=== PATIENT | male | born 1945 | race Caucasian/White ===

== ENCOUNTER 2018-05-04 14:48 | Inpatient (IN) | payer OTHER ==
[~2018-05-04] VITALS: Ht 167.6 cm; Wt 79.8 kg
--- NOTE | 2018-05-04 14:55 | NUR ---
Placed in room 1. Placed on diagnostic cardiac sonographer, blood pressure machine and pulse oximeter. To gown for exam. Side rails up. Report given to Mona JACOBS.
[2018-05-04 14:57] VITALS: BP_SYST 141
--- NOTE | 2018-05-04 15:05 | NUR ---
PT STATES THAT HE DOES NOT KNOW WHY HE IS HERE, PT STATES HE FEELS GOOD. ACCORDING TO , AFTER HAVING DIALYSIS TODAY, PT WENT HOME AND WAS ACTING ODDLY, CONFUSED. PT IS ALERT AND ORIENTED AT THIS TIME.
[2018-05-04 15:20] LABS: BASOPHILS % (AUTO) 0.5 % (0.0-2.0); EOSINOPHILS # (AUTO) 0.2 K/uL (0.0-0.4); HEMATOCRIT 31.3 % (36-54); HEMOGLOBIN 10.3 g/dL (14.0-18.0); LYMPHOCYTES # (AUTO) 0.7 K/uL (1.0-5.5); LYMPHOCYTES % (AUTO) 15.9 % (20.5-51.5); MEAN CORPUSCULAR HEMOGLOBIN 34 pg (27-31); MEAN CORPUSCULAR HGB CONC 33 % (32-36); MEAN CORPUSCULAR VOLUME 104 fL (79.0-98.0); MONOCYTES # (AUTO) 0.4 K/uL (0.0-1.0); MONOCYTES % (AUTO) 8.1 % (1.7-9.3); NEUTROPHILS # (AUTO) 3.3 K/uL (1.8-7.7); NEUTROPHILS % (AUTO) 70.5 % (40.0-70.0); PLATELET COUNT (AUTO) 117 K/uL (130-430); RED BLOOD CELL COUNT(AUTO) 3.02 MIL/uL (4.2-6.2); RED CELL DISTRIBUTION WIDTH 13.6 % (9.0-15.0); WHITE BLOOD COUNT (AUTO) 4.6 K/uL (4.8-10.8)
--- NOTE | 2018-05-04 15:20 | NUR ---
ER at bedside examining patient.
[2018-05-04 15:32] LABS: ANION GAP 8 (5-15); CALCIUM 9.1 mg/dL (8.4-11.0); CHLORIDE 97 mmol/L (98-107); GLUCOSE 129 mg/dL (70-99); POTASSIUM 3.7 mmol/L (3.5-5.1); SODIUM SERUM 134 mmol/L (136-145); UREA NITROGEN, BLOOD 34 mg/dL (8-21)
[2018-05-04 15:36] LABS: PROTHROMBIN TIME 9.7 SECS (9.5-12.5)
[2018-05-04 15:37] LABS: ALANINE AMINOTRANSFERASE 22 U/L (12-78); ALBUMIN 2.4 g/dL (3.4-4.8); ASPARTATE AMINOTRANSFERASE 23 U/L (10-37); TOTAL BILIRUBIN 0.7 mg/dL (0.0-1.0)
--- NOTE | 2018-05-04 15:45 | NUR ---
REPORT GIVEN TO ELOISA/SAM, WILL ASSUME CARE
--- NOTE | 2018-05-04 16:45 | NUR ---
Received the orders from Dr. Wolf via Telephone/ Readback.
[2018-05-04] MEDS ORDERED: GABA-531 PO (17:19)
[2018-05-04] MEDS ORDERED: TRIA15CR4 TP (17:19)
[2018-05-04] MEDS ORDERED: OMEP20TA20 PO (17:19)
[2018-05-04] MEDS ORDERED: PHO667 PO (17:19)
[2018-05-04] MEDS ORDERED: TACR1CAP PO (17:19)
[2018-05-04] MEDS ORDERED: NEU300 PO (17:19)
[2018-05-04] MEDS ORDERED: LAMI100T PO (17:19)
[2018-05-04] MEDS ORDERED: FURO-149 PO (17:19)
[2018-05-04] MEDS ORDERED: FLUO40CR9 TP (17:19)
[2018-05-04] MEDS ORDERED: TACR0.5C PO (17:19)
[2018-05-04] MEDS ORDERED: EMLA TP (17:19)
[2018-05-04] MEDS ORDERED: ISOS30TA6 PO (17:19)
[2018-05-04] MEDS ORDERED: FLUT16SP16 NS (17:19)
[2018-05-04] MEDS ORDERED: TAMS0.4C96 PO (17:19)
[2018-05-04] MEDS ORDERED: HYDR-3917 PO (17:19)
[2018-05-04] MEDS ORDERED: ALBMDI INH (17:19)
[2018-05-04] MEDS ORDERED: ALLO100T PO (17:19)
[2018-05-04] MEDS ORDERED: NEPH PO (17:19)
--- NOTE | 2018-05-04 17:20 | NUR ---
Medication reconciliation completed with information provided by Patient. Any prior medication reconciliation on file was reviewed and corrected.
[2018-05-04] MEDS ORDERED: MORP15TA PO (17:33)
[2018-05-04] MEDS ORDERED: RIFA300C2 PO (17:40)
[2018-05-04] MEDS ORDERED: PRO40 PO (17:40)
[2018-05-04] MEDS ORDERED: ACET-73 PO (17:40)
[2018-05-04] MEDS ORDERED: DOCU-144 PO (17:40)
--- NOTE | 2018-05-04 17:40 | NUR ---
Patient will be admitted to care of Dr. Wolf. Admitted to Tele unit. Will go to room 119A. Belongings list completed. Summary report printed. Report will be given at bedside.
--- NOTE | 2018-05-04 18:23 | NUR ---
Admission Note Received patient from ER with diagnosis of Metabolic Encephalopathy. Initial Plan of Care discussed-patient verbalized his understanding. Family at bedside. Oriented to room, call light, pain management and safety.
--- NOTE | 2018-05-04 18:23 | NUR ---
Transfer to Tele via ACLS protocol. Licensed nurse present. IV present no signs or symptoms of infiltration. Report given to ARLENE Boston.
[2018-05-04] MEDS ORDERED: MAGNESIUM SULFATE 50 ML IV PRN (18:30)
[2018-05-04] MEDS ORDERED: ONDANSETRON HCL 4 MG/2 ML VIAL IVP PRN (18:30)
[2018-05-04] MEDS ORDERED: ACETAMINOPHEN 325 MG TABLET PO PRN (18:30)
[2018-05-04] MEDS ORDERED: TRIAMCINOLONE ACETONIDE 0.025% 15 GM CREAM.GM. TP PRN (18:30)
[2018-05-04] MEDS ORDERED: POTASSIUM CHLORIDE 20 MEQ TAB.PRT.SR PO PRN (18:30)
[2018-05-04] MEDS ORDERED: MUPIROCIN 2% TOPICAL OINTMENT 22 GM NS PRN (18:30)
[2018-05-04] MEDS ORDERED: DOCUSATE SODIUM 100 MG CAPSULE PO PRN (18:30)
[2018-05-04] MEDS ORDERED: ALBUTEROL MDI INHALATION 8 GM INH INH PRN (18:30)
[2018-05-04] MEDS ORDERED: MORPHINE 2 MG/ML INJ. SYRINGE IVP PRN ×2 (18:30)
[2018-05-04] MEDS ORDERED: LORazepam 2 MG/ML VIAL IVP PRN (18:30)
[2018-05-04] MEDS ORDERED: ZOLPIDEM TARTRATE 5 MG TABLET PO PRN (18:30)
[2018-05-04 18:48] VITALS: BP_SYST 167
[2018-05-04] MEDS ORDERED: ALBUTEROL SULFATE 0.083% 2.5 MG/3 ML VIAL.NEB INH PRN (19:30)
--- NOTE | 2018-05-04 19:47 | NUR ---
Patient in bed resting with family at bedside. No acute distress or SOB noted. Patient noted with dialysis shunt on left forearm with clean dressing. AAOx3 and able to make needs known. Right forearm IV noted SL with no redness noted. All needs met at this time.
--- NOTE | 2018-05-04 20:27 | NUR ---
CONSULTATION PAGED/CALLED Reason for Consultation: dialysis Person Who was Notified: grace Consulting Physician: DR HAMPTON . DOCTOR LUÍS IS ASSISTANT PROJECT MANAGER Strip Cleaner Specialty: Ordering Physician: [place]
[2018-05-04] MEDS ORDERED: LABETALOL 100 MG/ 20ML VIAL IVP PRN (20:45)
--- NOTE | 2018-05-04 21:10 | NUR ---
TRANSFER OF CARE: REPORT TAKEN FROM ARLENE VARGAS TO ASSUME CARE AT BEDSIDE. PATIENT IN BEDSIDE AWAKE ORIENTED X3. AND DAUGHTER AT BEDSIDE. PATIENT HAVING HICCUP. TO GIVE MEDICINE. ASKED TO GIVE ALL MEDICINES NOW,WHERE LISTS OF MEDICINES SHE GAVE IN ER .DISCUSSED PLAN OF CARES TONIGHT AND IN AM.ABLE TO ANSWER ALL QUESTION AND GAVE WHAT SHE NEEDS. GAVE ICE CHIPS FOR HICCUPS WITH RELIEF.
[2018-05-04] MEDS: TACROLIMUS ANHYDROUS 1 MG CAPSULE (PROGRAF) PO SCH (22:14)
--- NOTE | 2018-05-04 22:15 | NUR ---
[employer]: PROGRAF 1MG PO GIVEN ORDERED. PT. IS ASKING FOR HIS 1MG +0.5MG PO PROGRAF.EXPLAINED 1MG AT HS AND 0.5MG AT O900AS ORDERED WITH UNDERSTANDING.
[2018-05-04 22:16] VITALS: BP_SYST 167
[2018-05-04 22:30] VITALS: BP_SYST 160
[2018-05-04] MEDS: FUROSEMIDE 40 MG/4 ML VIAL IVP SCH (22:49)
[2018-05-04] MEDS: DOCUSATE SODIUM 100 MG CAPSULE PO SCH (22:50)
--- NOTE | 2018-05-04 22:50 | NUR ---
LASIX 40MG IV WITH OTHER MEDS AFTER EDUCATING USE OF IT ,BP 160/67 .TOOK ALL MEDS WITHOUT DIFFICULTY.
[2018-05-04] MEDS: METOPROLOL TARTRATE 25 MG TABLET PO SCH (22:51)
[2018-05-04] MEDS: HEPARIN SODIUM,PORCINE 5000 UNITS/ML VIAL SUBCUT SCH (22:53)
--- NOTE | 2018-05-04 23:45 | NUR ---
BED ALARMED. GOT UP TO GO TO BATHROOM . ASSISTED .WALK SLOWLY TO BATHROOM. DENIES DIZZINESS. ASKED IF DID BOWEL MOVEMENT ANSWERED YES, DID VOIDED WELL REMINDED TO USE URINAL NEXT VOID TO SAVE SPECIMEN FOR URINALYSIS.
[2018-05-05 00:45] VITALS: BP_SYST 110
--- NOTE | 2018-05-05 01:30 | NUR ---
ROUNDS: PATIENT RESTING WITH EYES CLOSE.
--- NOTE | 2018-05-05 03:30 | NUR ---
ROUNDS: PATIENT IN BED ,AWAKE.DENIES PAIN NOR SOB. MORE BLANKETS GIVEN.ENCOURAGE TO SLEEP.
[2018-05-05 06:25] LABS: ANION GAP 8 (5-15); CHLORIDE 94 mmol/L (98-107); CREATININE 5.76 mg/dL (0.55-1.30); GLUCOSE 98 mg/dL (70-99); POTASSIUM 4.6 mmol/L (3.5-5.1); SODIUM SERUM 132 mmol/L (136-145); UREA NITROGEN, BLOOD 44 mg/dL (8-21)
[2018-05-05 06:49] LABS: BASOPHILS % (AUTO) 0.4 % (0.0-2.0); EOSINOPHILS # (AUTO) 0.2 K/uL (0.0-0.4); EOSINOPHILS % (AUTO) 5.4 % (0.0-4.0); HEMATOCRIT 31.4 % (36-54); HEMOGLOBIN 10.5 g/dL (14.0-18.0); LYMPHOCYTES # (AUTO) 0.9 K/uL (1.0-5.5); LYMPHOCYTES % (AUTO) 19.2 % (20.5-51.5); MEAN CORPUSCULAR HEMOGLOBIN 34 pg (27-31); MEAN CORPUSCULAR HGB CONC 34 % (32-36); MEAN CORPUSCULAR VOLUME 102 fL (79.0-98.0); MONOCYTES # (AUTO) 0.4 K/uL (0.0-1.0); MONOCYTES % (AUTO) 9.8 % (1.7-9.3); NEUTROPHILS % (AUTO) 65.2 % (40.0-70.0); PLATELET COUNT (AUTO) 99 K/uL (130-430); RED BLOOD CELL COUNT(AUTO) 3.08 MIL/uL (4.2-6.2); RED CELL DISTRIBUTION WIDTH 13.1 % (9.0-15.0); WHITE BLOOD COUNT (AUTO) 4.5 K/uL (4.8-10.8)
--- NOTE | 2018-05-05 06:50 | NUR ---
CLOSING: DID HAD EPISODES OF CONFUSION DURING THE SHIFT.AMBULATES SLOWLY. NO ACUTE CARDIOPULMONARY DISTRESS . FOR MRI OF BRAIN TODAY.
--- NOTE | 2018-05-05 07:17 | NUR ---
Initial notes: Patient sitting on the chair. Awake, alert and oriented. Stable. I.V. access patent. Discussed the plan of care. Call light within reach. Received report at bedside from ARLENE Schwab.
[2018-05-05 07:56] VITALS: BP_SYST 167
[2018-05-05] MEDS: FLUTICASONE PROPIONATE 50 mCg/SPRAY 16 GM NS SCH (08:50)
[2018-05-05] MEDS: TACROLIMUS ANHYDROUS 0.5 MG CAPSULE (PROGRAF) PO SCH (08:51)
[2018-05-05] MEDS: FUROSEMIDE 40 MG/4 ML VIAL IVP SCH ×2 (08:51→20:42)
[2018-05-05] MEDS: CALCIUM ACETATE 667 MG CAP PO SCH ×3 (08:51→18:43)
[2018-05-05] MEDS: TAMSULOSIN HCL 0.4 MG CAP PO SCH (08:52)
[2018-05-05] MEDS: RIFAMPIN 300 MG CAPSULE PO SCH (08:52)
[2018-05-05] MEDS: DOCUSATE SODIUM 100 MG CAPSULE PO SCH ×2 (08:52→20:40)
[2018-05-05] MEDS: GABAPENTIN 300 MG CAPSULE PO SCH (08:52)
[2018-05-05] MEDS: ISOSORBIDE MONONITRATE 30 MG TAB.ER.24H PO SCH (08:52)
[2018-05-05] MEDS: METOPROLOL TARTRATE 25 MG TABLET PO SCH ×2 (08:53→20:41)
[2018-05-05] MEDS: ALLOPURINOL 100 MG TABLET (ZYLOPRIM) PO SCH (08:53)
[2018-05-05] MEDS ORDERED: GABAPENTIN 300 MG CAPSULE PO SCH (09:00)
--- NOTE | 2018-05-05 09:24 | NUR ---
rounds: patient on bed eating breakfast. daughter at bedside. medication given thru oral and compliant.
--- NOTE | 2018-05-05 10:13 | NUR ---
Nutrition Update Nawaf Scale 18 noted. Pt admitted for metabolic encephalopathy. Diet: renal BMI: 26.8 kg/m2 RD to follow per nutrition care standards.
[2018-05-05 11:18] LABS: BILIRUBIN,URINE NEGATIVE (NEGATIVE); BLOOD, URINE NEGATIVE (NEGATIVE); CLARITY/URINE SL HAZY (CLEAR); COLOR,URINE YELLOW (YELLOW); GLUCOSE,URINE NEGATIVE (NEGATIVE); KETONES,URINE NEGATIVE (NEGATIVE); LEUKOCYTE ESTERASE ,URINE TRACE (NEGATIVE); NITRITE, URINE NEGATIVE (NEGATIVE); PH,URINE 7.5 (5.0-8.0); PROTEIN URINE 1+ (NEGATIVE); UROBILINOGEN,URINE 0.2 (0.2-1.0)
[2018-05-05 11:28] LABS: BACTERIA,URINE FEW /HPF (None Seen); MUCUS,URINE 1+ /LPF (None Seen); RBC,URINE NONE SEEN /HPF (0-3); WBC,URINE 0-3 /HPF (0-3)
--- NOTE | 2018-05-05 12:22 | NUR ---
ROUNDS; Patient having lunch, at bedside. no distress noted.
[2018-05-05 12:24] VITALS: BP_SYST 145
--- NOTE | 2018-05-05 15:02 | NUR ---
Barry: talking to Dr. Foster on the phone since when Dr. Clements did his rounds, no family inside the room.
--- NOTE | 2018-05-05 16:28 | NUR ---
BM: patient resting on bed. said patient does not have a BM for 6 days. Patient said he already have a couple of days. Patient taking colace daily.
[2018-05-05 16:30] VITALS: BP_SYST 127
[2018-05-05] MEDS ORDERED: SIMETHICONE 80 MG TAB.CHEW PO ONE (17:45)
--- NOTE | 2018-05-05 19:30 | NUR ---
Closing notes: Patient on bed resting. Stable. Needs attended. Safety measures in placed. Call light within reach. Report given to Nely Galindo.
--- NOTE | 2018-05-05 19:40 | NUR ---
ROUNDS PATIENT RESTING COMFORTABLY IN BED, VITALS STABLE, DENIES ANY PAIN AND DISCOMFORT AT THIS TIME. ASSESSMENT DONE AND DOCUMENTED. SEE FLOWSHEET. NEEDS ATTENDED TO. SAFETY AND FALL PRECAUTION MEASURES IN PLACED. BED IN LOW AND LOCKED POSITION. CALL LIGHT PLACED WITHIN REACH.
[2018-05-05 20:00] VITALS: BP_SYST 163
[2018-05-05] MEDS: SIMETHICONE 80 MG TAB.CHEW PO SCH (20:40)
[2018-05-05] MEDS: TACROLIMUS ANHYDROUS 1 MG CAPSULE (PROGRAF) PO SCH (20:42)
[2018-05-05] MEDS: HEPARIN SODIUM,PORCINE 5000 UNITS/ML VIAL SUBCUT SCH (20:48)
--- NOTE | 2018-05-05 21:05 | NUR ---
MEDICATION DUE MEDICATIONS GIVEN ORDERED, TOLERATED WELL. WILL CONTINUE TO MONITOR.
[2018-05-06] VITALS (7 sets, daily range): BP systolic 138–165
--- NOTE | 2018-05-06 | NUR ---
PATIENT RESTING: Patient resting quietly. No acute distress noted. Vital signs within normal range.
--- NOTE | 2018-05-06 02:15 | NUR ---
ROUNDS PATIENT ASLEEP, NO SOB NOR PAIN AND DISCOMFORT NOTED. WILL CONTINUE TO MONITOR.
--- NOTE | 2018-05-06 04:15 | NUR ---
ROUNDS PATIENT ASLEEP. VITALS STABLE, WILL CONTINUE TO MONITOR.
[2018-05-06 06:29] LABS: BASOPHILS % (AUTO) 0.4 % (0.0-2.0); EOSINOPHILS # (AUTO) 0.2 K/uL (0.0-0.4); EOSINOPHILS % (AUTO) 4.8 % (0.0-4.0); HEMOGLOBIN 9.7 g/dL (14.0-18.0); LYMPHOCYTES # (AUTO) 0.8 K/uL (1.0-5.5); LYMPHOCYTES % (AUTO) 18.3 % (20.5-51.5); MEAN CORPUSCULAR HEMOGLOBIN 34 pg (27-31); MEAN CORPUSCULAR HGB CONC 33 % (32-36); MEAN CORPUSCULAR VOLUME 102 fL (79.0-98.0); MONOCYTES # (AUTO) 0.4 K/uL (0.0-1.0); MONOCYTES % (AUTO) 8.3 % (1.7-9.3); NEUTROPHILS # (AUTO) 2.9 K/uL (1.8-7.7); PLATELET COUNT (AUTO) 84 K/uL (130-430); RED BLOOD CELL COUNT(AUTO) 2.86 MIL/uL (4.2-6.2); RED CELL DISTRIBUTION WIDTH 12.9 % (9.0-15.0); WHITE BLOOD COUNT (AUTO) 4.3 K/uL (4.8-10.8)
[2018-05-06 06:33] LABS: ANION GAP 10 (5-15); CHLORIDE 92 mmol/L (98-107); GLUCOSE 96 mg/dL (70-99); POTASSIUM 4.9 mmol/L (3.5-5.1); SODIUM SERUM 130 mmol/L (136-145); UREA NITROGEN, BLOOD 65 mg/dL (8-21)
[2018-05-06 06:45] LABS: CREATININE 7.53 mg/dL (0.55-1.30)
--- NOTE | 2018-05-06 07:00 | NUR ---
CLOSING NOTES PATIENT AWAKE, VITALS STABLE, DENIES ANY PAIN AND DISCOMFORT AT THIS TIME. ALL NEEDS ATTENDED TO. SAFETY MEASURES MAINTAINED. CALL LIGHT PLACED WITHIN REACH.
[2018-05-06] MEDS: CALCIUM ACETATE 667 MG CAP PO SCH ×3 (08:06→17:16)
[2018-05-06] MEDS: ALLOPURINOL 100 MG TABLET (ZYLOPRIM) PO SCH (08:06)
[2018-05-06] MEDS: DOCUSATE SODIUM 100 MG CAPSULE PO SCH (08:06)
[2018-05-06] MEDS: RIFAMPIN 300 MG CAPSULE PO SCH (08:06)
[2018-05-06] MEDS: TAMSULOSIN HCL 0.4 MG CAP PO SCH (08:06)
[2018-05-06] MEDS: ISOSORBIDE MONONITRATE 30 MG TAB.ER.24H PO SCH (08:07)
[2018-05-06] MEDS: METOPROLOL TARTRATE 25 MG TABLET PO SCH (08:07)
[2018-05-06] MEDS: GABAPENTIN 300 MG CAPSULE PO SCH (08:07)
[2018-05-06] MEDS: HEPARIN SODIUM,PORCINE 5000 UNITS/ML VIAL SUBCUT SCH ×2 (08:10→09:00)
[2018-05-06] MEDS: FLUTICASONE PROPIONATE 50 mCg/SPRAY 16 GM NS SCH (08:15)
[2018-05-06] MEDS: SIMETHICONE 80 MG TAB.CHEW PO SCH ×2 (08:21→16:07)
[2018-05-06] MEDS: FUROSEMIDE 40 MG/4 ML VIAL IVP SCH (08:21)
[2018-05-06] MEDS: TACROLIMUS ANHYDROUS 0.5 MG CAPSULE (PROGRAF) PO SCH (08:24)
--- NOTE | 2018-05-06 08:27 | NUR ---
AM NOTES Patient is awake, alert, orientedx4, laying in bed. No s/s of SOB or distress. No pain reported. Patient oriented to room routine, bed in lowest position, call light within reach, bed alarm on and working, patient verbalized understanding of bed alarm and is encouraged to use call light when in need of assistance.
--- NOTE | 2018-05-06 09:00 | NUR ---
HEPARIN HELD 0900 scheduled Heparin held because 05/06/18 Platelet is [address] Wolf.
[2018-05-06] MEDS ORDERED: BISACODYL 5 MG TABLET.DR (DULCOLAX) PO PRN (10:45)
[2018-05-06] MEDS ORDERED: BISACODYL 10 MG/SUPPOSITORY RC ONE (10:45)
[2018-05-06] MEDS ORDERED: DOCUSATE SODIUM 100 MG CAPSULE PO ONE (10:45)
--- NOTE | 2018-05-06 10:48 | NUR ---
MD NOTIFICATION ON HEPARIN Dr. Wolf made aware of platelet levels and that heparin was held. stopped Heparin and switched to SCD for DVT prophylaxis.
--- NOTE | 2018-05-06 11:17 | NUR ---
SCD for DVT prophylaxis: Bilateral SCD applied for DVT prophylaxis. Patient and spouse both informed of the indication of the equipment and to call for assist when wanting to use the restroom. Verbalized understanding.
[2018-05-06 11:57] LABS: NEUTROPHILS % (AUTO) 68.2 % (40.0-70.0)
--- NOTE | 2018-05-06 13:53 | NUR ---
ATTENDING MD DR Nubia CROSS WAS PAGED,RE: ORDER FOR SHOWER CHAIR AND DC ORDER. SPOKE TO SACHIN
--- NOTE | 2018-05-06 14:45 | NUR ---
Family Notification: Spoke with the patient's that MD will not DC patient home today, and that MD is aware of her request for shower chair.
--- NOTE | 2018-05-06 15:10 | NUR ---
Dietitian Recommendations * Recommend continuing renal diet per LP, RD Please refer to Nutrition Assessment for details.
--- NOTE | 2018-05-06 15:57 | NUR ---
PATIENT REQUESTS TO LEAVE AMA Patient is currently receiving dialysis. Patient's daughter at bedside states she will "take her father home right after dialysis is over." Family was informed of risks of taking patient home before MD is ready to discharge him, patient and family verbalizes understanding and remain firm with their decision to leave against medical advice.
--- NOTE | 2018-05-06 16:43 | NUR ---
DIALYSIS Patient started dialysis at 1330 and finished at 1643. Dialysis done by ARLENE Parisi, 2.5L taken out. V/S 138/86, 106bpm, 98.9F, 18RR, 98% on RA. Family is at bedside.
--- NOTE | 2018-05-06 16:52 | NUR ---
Request for Neuro Consult: Spoke with patient's in the room, stated that she is not taking patient against medical advice but requesting for a Neuro Consult. Paged Dr. Wolf to inform.
--- NOTE | 2018-05-06 17:30 | NUR ---
DC order: Spoke with Dr. Wolf regarding 's request for a neuro consult. Per MD it can be done as outpatient and may discharge patient home with home meds to be continued. Family was upset about it and wanted to leave immediately without waiting for the discharge papers. Since patient does not have a shirt for discharge , nurse offered to ask from security for a shirt from the closet. family agreed to wait. Called security then and asked for a shirt for the patient.
--- NOTE | 2018-05-06 17:45 | NUR ---
Discharge papers: Family now decided to wait for Discharge papers and wants to request for medical records. Informed them that the request will be forwarded to Medical Records, verbalized understanding.
--- NOTE | 2018-05-06 18:00 | NUR ---
DC notes: Discharged patient with the family. Daughter brought patient to the car on a wheelchair while DC papers are being processed and came back for it. All belongings were accounted for and discharged with patient/family. IV was removed, covered with sterile 2x2 dressing and secured with a tape.
== END 2018-05-06 18:01 | disposition home or self-care (01) | DRG 70 ==
LOC: SED 14:48 → STU 17:32
PROVIDERS: ADMIT General Practice; ATTEND General Practice
PROC: 5A1D70Z Performance of Urinary Filtration, Intermittent, Less than 6 Hours Per Day (ICD-10-PCS; principal; 2018-05-06)
DX: G93.41 Metabolic encephalopathy (principal); N17.0 Acute kidney failure with tubular necrosis; N18.6 End stage renal disease; E44.0 Moderate protein-calorie malnutrition; E87.1 Hypo-osmolality and hyponatremia; I13.2 Hypertensive heart and chronic kidney disease with heart failure and with stage 5 chronic kidney disease, or end stage renal disease; Z94.4 Liver transplant status; Z94.0 Kidney transplant status; F02.80 Dementia in other diseases classified elsewhere, unspecified severity, without behavioral disturbance, psychotic disturbance, mood disturbance, and anxiety; G30.9 Alzheimer's disease, unspecified; D63.8 Anemia in other chronic diseases classified elsewhere; N40.0 Benign prostatic hyperplasia without lower urinary tract symptoms; I50.9 Heart failure, unspecified; J44.9 Chronic obstructive pulmonary disease, unspecified; K21.9 Gastro-esophageal reflux disease without esophagitis; K59.00 Constipation, unspecified; G89.29 Other chronic pain; M54.9 Dorsalgia, unspecified; E86.0 Dehydration; M10.9 Gout, unspecified; E21.1 Secondary hyperparathyroidism, not elsewhere classified; R76.11 Nonspecific reaction to tuberculin skin test without active tuberculosis; Z99.2 Dependence on renal dialysis; Z88.8 Allergy status to other drugs, medicaments and biological substances; Z79.899 Other long term (current) drug therapy; Z68.28 Body mass index [BMI] 28.0-28.9, adult
CPT/HCPCS: 36415; 70450-TC; 71045; 74018; 80048; 80053; 81000-TC; 82140-TC; 83735-TC; 83880; 84484; 85025; 85610-TC; 85730-TC; 87081; 93005; 99285; J1644; J1940; J3490; J7030; J7507